=== PATIENT | female | born 1955 | race Caucasian/White ===

== ENCOUNTER → 2019-06-22 | Outpatient (CLI) | payer OTHER ==
--- NOTE | 2019-06-22 16:06 | CARDNUC ---
[place] [address] CARDIAC NUCLEAR IMAGING REPORT Name: KARISSA KINGSTONA Viry Room: [facility]#: [id number] Admission: 06/22/19 Attend Phys: Darion Edwards, Discharge: Date of : 55 Date of Service: 06/22/19 1605 Report #: [id number] THIS REPORT FOR: cc: Kendall Hernandez MD, Anthony MD Liston, Michael J. MD [facility] ~ APPROVED REPORT Study performed: 06/22/2019 14:33:12 Exam: Nuclear Stress Test Indication: Dyspnea Patient Location: Out-Patient Stress Tech: Chana Manrique Stress Nurse: Leonela Gutierrez RN Ht: 5 ft 3 in Wt: 170 lbs BSA: 1.80 m2 BMI: 30.11 Medical History Medical History: CAD non obstructive, COPD, HTN, Hyperlipidemia Medications: asa-81, atorvaastatin, carvedilol, hctz, clonidine Allergies: pcn Cardiac Risk Factors: Age, HTN, Hyperlipidemia, Current Smoker, FHX of CAD Exercise History: Indeterminate Meds Held (24 hrs): carvedilol Stress Test Details Stress Test: Pharmacologic stress testing performed using 0.4 mg of regadenoson per 5 mL given IV over 10 seconds. Reason for pharmacologic stress test: physical limitation. HR Resting HR: 61 bpm Max Heart Rate (APMHR): 156 bpm Max HR Achieved: 92 bpm Target HR (85% APMHR): 132 bpm % of APMHR: 58 Recovery HR: 83 bpm BP Resting BP: 149/93 mmHg Max BP: 183/88 [place] [address] CARDIAC NUCLEAR IMAGING REPORT Name: LINO KINGSTON Room: [facility]#: [id number] Admission: 06/22/19 Attend Phys: Darion Edwards, Discharge: Date of : 55 Date of Service: 06/22/19 1605 Report #: [id number] ECG Resting ECG: Sinus Rhythm Stress ECG: Sinus Rhythm ST Change: None Arrhythmia: None Recovery ECG: Sinus Rhythm Recovery ST Change: None Recovery Arrhythmia: None Clinical Reason for Termination: Completed protocol The patient tolerated Lexiscan infusion without significant cardiac symptoms. Nurse Comments pt has ynsteady gait and could not walk on treadmill Stress ECG Conclusion Baseline twelve-lead EKG shows sinus rhythm without significant ST segment or T wave abnormality. EKGs obtained during and post Lexiscan stress shows sinus rhythm with no significant ST segment or T wave changes when compared to baseline. There were no significant stress-induced arrhythmias. NM EXAM: Myocardial Perfusion REST/STRESS Imaging Protocol: Rest Tc-99m/Stress Tc-99m 1 day Resting Data Rest SPECT myocardial perfusion imaging was performed in supine position 30 minutes following the intravenous injection of 10.5 mCi of Tc-99m Sestamibi. Time of rest injection: 13:05 The images were gated to evaluate regional wall motion and calculate left ventricular ejection fraction. Administration Route: IV Administration Site: Right Hand Pharmacologic Stress Pharmacologic stress test was performed by injecting Regadenoson 0.4 mg IV push followed by the intravenous injection of 35.0 mCi of Tc-99m Sestamibi. Time of stress injection: 14:35 Administration Route: IV Administration Site: Right Hand Heart Rate at time of stress injection: [place] [address] CARDIAC NUCLEAR IMAGING REPORT Name: LINO KINGSTON Room: [facility]#: [id number] Admission: 06/22/19 Attend Phys: Darion Edwards, Discharge: Date of : 55 Date of Service: 06/22/19 1605 Report #: [id number] Gated Stress SPECT was performed 40 minutes after stress injection. The images were gated to evaluate regional wall motion and calculate left ventricular ejection fraction. Prone imaging was performed. Study Quality Study: Good Artifact: No artifact Study Data At rest, the left ventricular ejection fraction was 73%.. Post stress, the left ventricular ejection was 70%.. TID = 1.06. Perfusion Perfusion images obtained at rest and post Lexiscan stress showed uniform uptake of the radioisotope throughout the myocardium. There were no defects to suggest infarct or ischemia. Wall Motion Normal left ventricular wall motion. Nuclear Conclusion ECG Findings: negative for ischemia Clinical Findings: negative for ischemia Nuclear Findings: negative for ischemia Exercise Capacity: not assessed Left Ventricular Function: normal Risk Study: low Myocardial perfusion images show no defect to suggest infarct or ischemia. Left ventricular systolic function appears normal on gated studies. This is a low risk study. <Conclusion> Baseline twelve-lead EKG shows sinus rhythm without significant ST segment or T wave abnormality. EKGs obtained during and post Lexiscan stress shows sinus rhythm with no significant ST segment or T wave changes when compared to baseline. There were no significant stress-induced arrhythmias. <ELECTRONICALLY SIGNED> By: Darion Edwards MD, FACC 06/22/19 1605 1605 1605 Darion Edwards MD, FACC /INF
== END ==
LOC: M.NUC 06-14 13:32
DX: R06.00 Dyspnea, unspecified (principal); I25.10 Atherosclerotic heart disease of native coronary artery without angina pectoris; J44.9 Chronic obstructive pulmonary disease, unspecified; I10 Essential (primary) hypertension; E78.5 Hyperlipidemia, unspecified; Z79.82 Long term (current) use of aspirin; Z79.899 Other long term (current) drug therapy